=== PATIENT | male | born 1980 | race Two or more races ===

== ENCOUNTER 2017-01-25 01:15 | Emergency (ER) | payer SELFPAY ==
[~2017-01-25] VITALS: Ht 170.2 cm; Wt 90.7 kg
[2017-01-25 02:00] VITALS: BP 128/71
[2017-01-25] MEDS ORDERED: LIDOCAINE 1% PF 2 ML VIAL. INJ ONE (02:00)
[2017-01-25 02:06] LABS: POTASSIUM ISTAT 3.5 mmol/L (3.5-5.0)
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
[2017-01-25] MEDS ORDERED: LIDOCAINE 1% 20 ML VIAL. IJ ONE (02:30)
[2017-01-25] MEDS ORDERED: NAPR375T3 PO (03:00)
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
== END 2017-01-25 03:22 | disposition home or self-care (01) ==
LOC: ER 01:15 → EEVIPCON 01:15 → ER 03:22
DX: S02.32XA Fracture of orbital floor, left side, initial encounter for closed fracture (principal); S01.01XA Laceration without foreign body of scalp, initial encounter; S61.412A Laceration without foreign body of left hand, initial encounter; S51.012A Laceration without foreign body of left elbow, initial encounter; Y04.8XXA Assault by other bodily force, initial encounter; Y93.89 Activity, other specified; Y92.89 Other specified places as the place of occurrence of the external cause; Y99.8 Other external cause status
CPT/HCPCS: 12004; 70450; 70486; 71010; 72125; 73130; 80047; 99284-25; 99285-25